=== PATIENT | female | born 1960 | race Caucasian/White ===

== ENCOUNTER → 2023-07-20 10:31 | Outpatient (REF) | payer BC, SELFPAY | LOC: WDC 10:31 | PROVIDERS: ATTENDING PHYSICIAN Radiology Radiation Oncology; FAMILY PHYSICIAN Internal Medicine | DX: Z12.31 Encounter for screening mammogram for malignant neoplasm of breast (principal) | CPT/HCPCS: 77063; 77067 ==

== ENCOUNTER → 2024-05-28 07:43 | Outpatient (REF) | payer BC, SELFPAY | LOC: WDC 07:43 | PROVIDERS: ATTENDING PHYSICIAN Surgery | DX: R92.2 Inconclusive mammogram (principal); R92.8 Other abnormal and inconclusive findings on diagnostic imaging of breast; Z85.3 Personal history of malignant neoplasm of breast; C50.412 Malignant neoplasm of upper-outer quadrant of left female breast | CPT/HCPCS: 76641 ==

== ENCOUNTER → 2024-07-24 13:12 | Outpatient (REF) | payer BC, SELFPAY | LOC: WDC 13:12 | PROVIDERS: ATTENDING PHYSICIAN Family Medicine Geriatric Medicine; FAMILY PHYSICIAN Family Medicine | DX: Z12.31 Encounter for screening mammogram for malignant neoplasm of breast (principal); Z12.39 Encounter for other screening for malignant neoplasm of breast; Z85.3 Personal history of malignant neoplasm of breast | CPT/HCPCS: 77063; 77067 ==

== ENCOUNTER 2024-10-12 06:27 | Day surgery (SDC) | payer BC, SELFPAY | END 2024-10-12 16:08 | disposition home or self-care (01) | LOC: GI 06:27 | PROVIDERS: ATTENDING PHYSICIAN Internal Medicine Gastroenterology | DX: Z12.11 Encounter for screening for malignant neoplasm of colon (principal); K64.8 Other hemorrhoids; K64.4 Residual hemorrhoidal skin tags; K57.30 Diverticulosis of large intestine without perforation or abscess without bleeding; D12.3 Benign neoplasm of transverse colon | CPT/HCPCS: 45385; 88305 ==

== ENCOUNTER → 2024-10-21 08:25 | Outpatient (REF) | payer BC, SELFPAY | LOC: RAD 08:25 | PROVIDERS: ATTENDING PHYSICIAN Nurse Practitioner Adult Health; FAMILY PHYSICIAN Family Medicine | DX: C50.112 Malignant neoplasm of central portion of left female breast (principal); E55.9 Vitamin D deficiency, unspecified; R53.83 Other fatigue | CPT/HCPCS: 77080 ==

== ENCOUNTER → 2024-11-17 15:21 | Outpatient (REF) | payer BC, SELFPAY | LOC: MRI 3T 15:21 | PROVIDERS: ATTENDING PHYSICIAN Family Medicine | DX: G44.52 New daily persistent headache (NDPH) (principal); Z86.69 Personal history of other diseases of the nervous system and sense organs; H53.8 Other visual disturbances | CPT/HCPCS: 70553; A9575 ==

== ENCOUNTER → 2025-03-08 13:57 | Outpatient (REF) | payer BC, SELFPAY | LOC: MRI 3T 13:57 | PROVIDERS: ATTENDING PHYSICIAN Internal Medicine Hematology & Oncology | DX: C50.112 Malignant neoplasm of central portion of left female breast (principal); E55.9 Vitamin D deficiency, unspecified; R53.83 Other fatigue | CPT/HCPCS: 77049; A9585 ==

== ENCOUNTER → 2025-06-09 08:46 | Outpatient (REF) | payer BC, SELFPAY | LOC: WDC 08:46 | PROVIDERS: ATTENDING PHYSICIAN Nurse Practitioner Adult Health; FAMILY PHYSICIAN Family Medicine | DX: N64.4 Mastodynia (principal) | CPT/HCPCS: 76642 ==